=== PATIENT | female | born 1970 | race Caucasian/White ===

== ENCOUNTER 2019-01-22 11:28 | Inpatient (IN) | payer OTHER ==
[2019-01-21 09:47] VITALS: BMI 33.5
[2019-01-22] MEDS ORDERED: DEXAMETHASONE SOD PHOSPHATE/PF 10 MG/ML SDV ONE (13:41)
[2019-01-22] MEDS ORDERED: BUPIVACAINE HCL/PF 0.5% (5 MG/ML) 30 ML VIAL IJ ONE (13:41)
[2019-01-22] MEDS ORDERED: MIDAZOLAM HCL 2 MG/2 ML SINGLE DOSE VIAL ONE ×2 (13:42)
[2019-01-22] MEDS ORDERED: PROPOFOL 20 ML ONE (13:56)
[2019-01-22] MEDS ORDERED: ROCURONIUM BROMIDE 50 MG/5 ML SYRINGE ONE ×2 (13:56→15:07)
[2019-01-22] MEDS ORDERED: KETAMINE HCL 200 MG/20 ML VIAL ONE (13:57)
[2019-01-22] MEDS ORDERED: ceFAZolin SODIUM 1 GM VIAL IVPB ONE (14:06)
[2019-01-22] MEDS ORDERED: ceFAZolin SODIUM 1 GM VIAL ONE (14:13)
[2019-01-22] MEDS ORDERED: KETOROLAC TROMETHAMINE 30 MG/1 ML VIAL ONE (14:13)
[2019-01-22] MEDS ORDERED: LIDOCAINE HCL/PF 2% SDV 5ML VIAL ONE (14:13)
[2019-01-22] MEDS ORDERED: DEXAMETHASONE SOD PHOSPHATE 4 MG/1 ML VIAL ONE (14:13)
[2019-01-22] MEDS ORDERED: SODIUM CHLORIDE 0.9% P/F 10 ML VIAL IJ ONE (14:13)
[2019-01-22] MEDS ORDERED: GLYCOPYRROLATE 0.2 MG/1 ML VIAL ONE (15:21)
[2019-01-22] MEDS ORDERED: NEOSTIGMINE METHYLSULFATE 0.5 MG/ML - 10 ML MDV ONE (15:22)
[2019-01-22] MEDS ORDERED: DESFLURANE GAS 240 ML BOTTLE IH ONE (15:30)
--- NOTE | 2019-01-22 16:01 | OP ---
Operative Note - Note: Operative Date: 01/22/19 Pre-Operative Diagnosis: large fibroids. Menorrhagia. pelvic pain. Operation: HEATH, BS. Drainage of rt ovarian cyst Post-Operative Diagnosis: Other (same + rt ovarian cyst.) Surgeon: Scar Flowers Academic Physician: Curtis Pro (PA Christine) Anesthesia: General Estimated Blood Loss (mls): 200
[2019-01-22] MEDS ORDERED: ONDANSETRON 4 MG/2 ML VIAL IVPUSH PRN (16:12)
[2019-01-22] MEDS ORDERED: oxyCODONE HCL 5 MG TABLET PO PRN (16:40)
[2019-01-22] MEDS ORDERED: ACETAMINOPHEN 325 MG TABLET (FP) PO PRN (16:41)
[2019-01-22] MEDS ORDERED: MORPHINE SULFATE 2 MG/ML VIAL IVPUSH PRN (16:44)
--- NOTE | 2019-01-22 16:50 | SURG ---
Surgery Special Assets Officer Note Special Assets Officer: Christine Benjamin PA-C Date of Service: 01/22/19 Diagnosis: large fibroids. Menorrhagia. pelvic pain. Procedure: HEATH, BS. Drainage of rt ovarian cyst I was present for the entirety of the operative procedure. For further detail, please refer to operative report. Visit type - Case Type Case Type: Scheduled - Emergency Emergency Visit: No - New patient This patient is new to me today: Yes Date on this admission: 01/22/19
[2019-01-22] MEDS: LACTATED RINGERS SOLUTION 1,000 ML IV SCH (17:18)
--- NOTE | 2019-01-22 18:54 | OP ---
DATE OF OPERATION: 01/22/2019 PREOPERATIVE DIAGNOSES: 1. Large, growing, symptomatic leiomyomata. 2. Menorrhagia. 3. Pelvic pain. POSTOPERATIVE DIAGNOSES: 1. Large, growing, symptomatic leiomyomata. 2. Menorrhagia. 3. Pelvic pain. 4. Right ovarian cyst. 5. Mild endometriosis. OPERATION PERFORMED: 1. Total abdominal hysterectomy with bilateral salpingectomy. 2. Drainage of right ovarian cyst. ANESTHESIA: General and TAP block. ANESTHESIOLOGIST: Iris Anderson MD SURGEON: Marizol Benitez MD ASSISTANTS: 1. EVI Bose 2. Curtis Pro MD PROCEDURE AND FINDINGS: Under general anesthesia, in the dorsal supine position, a routine prep and drape was carried out. A Musa was inserted. Antibiotics were given. The abdomen was opened through a very well-healed old Pfannenstiel incision. It was carried on transversely through subcutaneous tissue and fascia. The rectus muscles were dissected off the fascia and in the midline. The peritoneum was opened in the upper part of the incision, and the opening was extended vertically. A large uterus with multiple myomas was noted upon entry into the peritoneum. Brief examination showed a few seeds of endometriosis on the ovaries and in the cul-de-sac, as well as about a 3-cm clear right-sided cyst. Otherwise, the contents of the pelvis and abdomen were within normal limits. Using a Bovie, the cyst was drained. Clear fluid was noted. The cyst wall collapsed completely. The right round ligament was opened with the LigaSure device. The anterior leaf of the broad ligament was dissected and a bladder flap was developed. The bladder was taken off the cervix sharply, releasing post- section adhesions. The fallopian tube was then removed using the same LigaSure and sent as a specimen. The utero-ovarian ligament was divided and the ovary was allowed to drop back. The broad ligament was again entered and exposed. The uterine vessels were identified, clamped, divided and suture ligated with 1 Vicryl. The same was repeated on the left side. A bladder flap was taken off the cervix completely. The cardinal ligaments and uterosacral ligaments were then subsequently clamped, divided and suture ligated with 1 Vicryl. [place] through the cervix, transverse incision was carried out, amputating the fundus and more distal part of the cervix. Sweetheart clamps were placed on the cervical stump and dissection was completed. The anterior fornix was entered sharply, and the cervix was excised. Angle sutures were closed with modified technique using 1 Vicryl suture. The pelvis was lavaged. Hemostasis was attended to meticulously. With the pelvis completely dry, Surgicel was applied on the vaginal vault, which was suspended on the uterosacral and cardinal ligament stumps. Count was reported as correct. The abdomen was closed in layers, with the peritoneum closed with 2-0 PDS suture, the fascia with 1 Vicryl continuous running suture, and subcutaneous tissue was approximated with multiple interrupted 2-0 Biosyn sutures. The skin was approximated with 2-0 Biosyn subcuticular suture. A sterile dressing was applied and held in place with a binder. Estimated blood loss was about 200 mL. The patient withstood the surgery very well and was transferred to the PACU comfortable and stable. MARIZOL BENITEZ MD [id number]
[2019-01-22] MEDS: CEFAZOLIN 1 GM/D5W 1 GM/50 ML BAG IVPB SCH (22:46)
[2019-01-23] MEDS: oxyCODONE HCL 5 MG TABLET PO PRN ×3 (00:06→12:44)
[2019-01-23] MEDS: LACTATED RINGERS SOLUTION 1,000 ML IV SCH (01:32)
[2019-01-23] MEDS: CEFAZOLIN 1 GM/D5W 1 GM/50 ML BAG IVPB SCH (06:27)
--- NOTE | 2019-01-23 09:42 | PN ---
Progress Note (short form) - Note Progress Note: Pod 1, HEATH, BS, Drainage of rt ovarian cyst Pt seen and examined. Sitting in chair with spouse at bedside. reports she is feeling well. Pain is controlled, last pain meds were around midnight. Awaiting breakfast. Musa removed, awaiting TOV. Denies cp/sob, n/v/d. Vital Signs Temp 98.9 F 01/23/19 06:00 Pulse 89 01/23/19 06:00 Resp 20 01/23/19 06:00 BP 116/52 L 01/23/19 06:00 Pulse Ox 100 01/22/19 21:00 Intake & Output 01/22/19 01/22/19 01/23/19 11:59 23:59 11:59 Intake Total 3050 Output Total 600 1200 Balance 2450 -1200 Weight 172 lb Intake: IV 2400 IVPB 50 Oral 600 Output: Urine 500 1200 Musa 1200 Estimated Blood Loss 100 Other: Voiding Method Bedpan Bowel Movement No Height 5 ft Body Mass Index (BMI) 33.5 Weight Measurement Method Stated by Patient Gen: awake, alert, nad Resp: Unlabored on RA Abdo: soft, + ttp at incision site. Binder in place. Incision c/d/i with steri- strips in place A/P: 48 y/o F w/ large fibroids/menorrhagia/pelvic pain now POD 1, open abdominal hysterectomy, bilateral salpingectomy, Drainage of rt ovarian cyst Afebrile, VSS Am labs pending -F/U am labs -OOB ad laney -Regular diet -Pain control as ordered -DVT prophylaxis with Lovenox 40mg qd -IS -VS per protocol -Keep abdominal binder in place for comfort d/w attending Dr Flowers
[2019-01-23] MEDS ORDERED: ENOXAPARIN NA (PORCINE) 40 MG/0.4 ML DISP.SYRIN SQ SCH (10:00)
[2019-01-23 12:51] LABS: BASO % 0.3 % (0-2.0); EOS % 0.1 % (0-4.5); HEMATOCRIT 33.2 % (32.4-45.2); HEMOGLOBIN 10.8 GM/dL (10.7-15.3); LYMPH % 10.1 % (8-40); MCH 24.2 pg (25.7-33.7); MCHC 32.5 g/dl (32.0-36.0); MEAN CELL VOLUME 74.7 fl (80-96); MEAN PLT VOLUME 9.6 fl (7.5-11.1); MONO % 6.2 % (3.8-10.2); NEUT % 83.3 % (42.8-82.8); PLATELET COUNT 177 K/MM3 (134-434); RBC 4.45 M/mm3 (3.60-5.2); RDW 16.8 % (11.6-15.6); WHITE BLOOD COUNT 14.1 K/mm3 (4.0-10.0)
[2019-01-23 13:19] LABS: BILIRUBIN,TOTAL 1.1 mg/dL (0.2-1); BLOOD UREA NITROGEN 9.3 mg/dL (7-18); CALCIUM 8.3 mg/dL (8.5-10.1); CREATININE 0.9 mg/dL (0.55-1.3); POTASSIUM 4.1 mmol/L (3.5-5.1); TOT PROT 6.4 g/dl (6.4-8.2)
[2019-01-23 14:05] VITALS: BP 103/54; PULSE 93; TEMP 98.3
--- NOTE | 2019-01-25 10:25 | PATH ---
Surgical Pathology Report Patient Name: ROSE MARCH [facility]. Rec. #: [id number] /Age/Gender: 1970 (Age: 48) / F Account: [id number] Location: [address] [place] [address] Taken: 01/22/2019 Received: 01/23/2019 Reported: 01/25/2019 Physicians: Scar Flowers MD Specimen(s) Received A: UTERUS AND CERVIX B: LEFT FALLOPIAN TUBE C: RIGHT FALLOPIAN TUBE Clinical History Uterine fibroids, menorrhagia Final Diagnosis A. UTERUS, CERVIX, ABDOMINAL HYSTERECTOMY: 361 G LEIOMYOMA(TA), SUBSEROSAL AND INTRAMURAL. SECRETORY ENDOMETRIUM. FOCAL ADENOMYOSIS. CERVIX WITH MILD CHRONIC CERVICITIS. B. FALLOPIAN TUBE, LEFT, SALPINGECTOMY: FALLOPIAN TUBE WITH PARATUBAL CYSTS (INCLUDING FIMBRIATED END AND FULL LUMINAL PORTION). C. FALLOPIAN TUBE, RIGHT, SALPINGECTOMY: FALLOPIAN TUBE WITH PARATUBAL CYSTS (INCLUDING FIMBRIATED END AND FULL LUMINAL PORTION). Electronically Signed Mckenzie Perdomo M.D. Gross Description A. Received in formalin labeled "uterus/cervix," is a 361 g supracervically amputated uterus with no attached adnexa. The unoriented cervix is separately received within the same container. The uterus measures 9 cm from superior to inferior, 9 cm from anterior to posterior and 7.8 cm from left to right. The serosa is pérez with focal bulging subserosal nodules. The endometrial cavity measures 7 cm from superior to inferior and 5.5 cm from left to right. The endometrium is pérez-red and averages 0.2 cm in thickness. The myometrium displays multiple intramural nodules, measuring up to 6.5 cm in greatest dimension. The cut surface of the nodules is pérez and rubbery with whorled architecture. No areas of hemorrhage or necrosis are identified. The remaining myometrium is pérez-pink and measures up to 5.5 cm in thickness. The separately received cervix measures 3.4 cm in length and averages 3 cm in diameter. The ectocervix is pérez, smooth and glistening. The endocervix is unremarkable. Apn sections are submitted in 12 cassettes as follows: 7-3-enlwqufpisjh cervix; 5-8-fqhelzopgdzhfz; 2-4-mjxpzwaoxt nodules; 4-75-lilxjfb intramural nodule; 12-additional intramural nodules. B. Received in formalin labeled "left fallopian tube," is a 4 cm in length fimbriated fallopian tube. The outer surface is donald purple and smooth. Sectioning reveals an unremarkable lumen. Apn sections are submitted in 2 cassettes as follows: 1-fimbria; 2-cross sections of fallopian tube. C. Received in formalin labeled "right fallopian tube," is a 3.3 cm in length fimbriated fallopian tube. The outer surface is donald purple with 2 paratubal cysts attached, measuring 0.7 and 0.9 cm in greatest dimension. Sectioning reveals an unremarkable lumen. Apn sections are submitted in 2 cassettes as follows: 1-fimbria; 2-cross sections of fallopian tube. 01/23/2019 [facility]01/23/2019
== END 2019-01-23 18:39 | disposition home or self-care (01) | DRG 519 ==
LOC: JSAMEDAYSX 11:38 → J6S 18:16
PROVIDERS: ADMIT Specialist; ATTEND Specialist
PROC: 0UT70ZZ Resection of Bilateral Fallopian Tubes, Open Approach (ICD-10-PCS; 2019-01-22)
PROC: 0U900ZZ Drainage of Right Ovary, Open Approach (ICD-10-PCS; 2019-01-22)
PROC: 0UT90ZZ Resection of Uterus, Open Approach (ICD-10-PCS; principal; 2019-01-22 13:00)
DX: D25.1 Intramural leiomyoma of uterus (principal); D25.2 Subserosal leiomyoma of uterus; R10.2 Pelvic and perineal pain; N83.201 Unspecified ovarian cyst, right side; N92.0 Excessive and frequent menstruation with regular cycle; N80.0 Endometriosis of uterus; N72 Inflammatory disease of cervix uteri
CPT/HCPCS: 36415; 80053; 85025; 86850; 86900; 86901; 88302-TC; 88307-TC; 94760